=== PATIENT | female | born 1955 | race Caucasian/White ===

== ENCOUNTER → 2019-05-19 | Outpatient (CLI) | payer BC ==
[~2019-05-19] VITALS: Ht 157.5 cm; Wt 54.5 kg
[~2019-05-19] MED LIST: LIDOCAINE 1% INJ 20 ML 20 ML VIAL INJ ONE
--- NOTE | 2019-05-19 12:32 | Diagnostic Imaging Report ---
INDICATION: Right breast architectural distortion. Patient presents for stereotactic biopsy. FINDINGS: The patient was brought to the stereotactic suite and placed in a chair in the sitting upright position. The right breast was positioned in the CC manner. Tomographic imaging was performed to evaluate for an appropriate site. The architectural distortion was targeted. The superior aspect of the right breast was prepped and draped in the usual sterile fashion. A small amount of 1% lidocaine was utilized for local anesthesia. An 8 gauge needle was advanced into the right breast and placed per stereotactic coordinates. A total of four core biopsies was obtained utilizing a vacuum-assisted device. A marker clip was then deployed. The needle was removed and hemostasis was obtained. The followup CC and ML 2D mammogram shows the marker clip in the area of architectural distortion. The patient tolerated the procedure well. IMPRESSION: Successful stereotactic biopsy of the area of architectural distortion in the upper outer right breast. Pathology results are currently pending. Dictated by: Dictated on workstation # [id number]
== END ==
LOC: RAD 08:10
PROVIDERS: ATTEND Family Medicine
DX: N64.89 Other specified disorders of breast (principal); R92.8 Other abnormal and inconclusive findings on diagnostic imaging of breast
CPT/HCPCS: 19081